=== PATIENT | female | born 1985 | race Caucasian/White ===

== ENCOUNTER 2016-11-20 11:46 | Inpatient (IN) | payer OTHER ==
[2016-11-20] VITALS (9 sets, daily range): BP systolic 94–128; BP diastolic 6–75; PULSE 66–131; RESP 17–20; TEMP 97.3–101.4; O2SAT 94–100
[~2016-11-20] VITALS: Ht 160 cm; Wt 78.5 kg
[2016-11-20] MEDS ORDERED: NACL 0.9% 1,000 ML IV ONE (11:54)
--- NOTE | 2016-11-20 11:55 | NUR ---
BROUGHT BACK TO BED #8 AND TRIAGED. REPORT GIVEN TO LEANA
[2016-11-20] MEDS ORDERED: ONDANSETRON HCL 4 MG/2 ML VIAL IVP ONE (12:00)
[2016-11-20] MEDS ORDERED: KETOROLAC TROMETHAMINE 30 MG VIAL IVP ONE (12:00)
[2016-11-20] MEDS ORDERED: PROCHLORPERAZINE EDISYLATE 10 MG/2 ML VIAL IVP ONE (12:15)
[2016-11-20 12:27] LABS: BASOPHILS # (AUTO) 0.1 K/uL (0.0-0.2); BASOPHILS % (AUTO) 0.5 % (0.0-2.0); EOSINOPHILS % (AUTO) 0.1 % (0.0-4.0); HEMATOCRIT 41.8 % (36-48); LYMPHOCYTES # (AUTO) 1.4 K/uL (1.0-5.5); LYMPHOCYTES % (AUTO) 10.4 % (20.5-51.5); MEAN CORPUSCULAR HEMOGLOBIN 29 pg (27-31); MEAN CORPUSCULAR HGB CONC 34 % (32-36); MEAN CORPUSCULAR VOLUME 87 fL (79.0-98.0); MONOCYTES # (AUTO) 0.2 K/uL (0.0-1.0); MONOCYTES % (AUTO) 1.2 % (1.7-9.3); NEUTROPHILS # (AUTO) 11.8 K/uL (1.8-7.7); NEUTROPHILS % (AUTO) 87.8 % (40.0-70.0); PLATELET COUNT (AUTO) 271 K/uL (130-430); RED BLOOD CELL COUNT(AUTO) 4.78 MIL/uL (4.2-6.2); RED CELL DISTRIBUTION WIDTH 13.4 % (9.0-15.0); WHITE BLOOD COUNT (AUTO) 13.5 K/uL (4.8-10.8)
[2016-11-20 12:32] LABS: AMYLASE 63 U/L (0-100); LIPASE 115 U/L (73-393)
--- NOTE | 2016-11-20 12:43 | NUR ---
ER at bedside examining patient.
--- NOTE | 2016-11-20 12:44 | NUR ---
# 20 gauge angiocath placed to rac. Use of asceptic technique. Opsite placed over site. Blood return noted. Blood for lab drawn from site. Flushed with 10 cc of normal saline. No evidence of infiltration noted. Patient tolerated well.
[2016-11-20 12:50] LABS: CALCIUM 8.7 mg/dL (8.4-11.0); CREATININE 0.89 mg/dL (0.55-1.30); POTASSIUM 3.9 mmol/L (3.5-5.1)
[2016-11-20 12:55] LABS: ALBUMIN 4.1 g/dL (3.4-4.8); TOTAL BILIRUBIN 0.4 mg/dL (0.0-1.0); TOTAL PROTEIN, SERUM 7.2 g/dL (6.4-8.3)
[2016-11-20 13:10] LABS: BILIRUBIN,URINE NEGATIVE (NEGATIVE); BLOOD, URINE NEGATIVE (NEGATIVE); CLARITY/URINE CLEAR (CLEAR); COLOR,URINE YELLOW (YELLOW); GLUCOSE,URINE NEGATIVE (NEGATIVE); KETONES,URINE NEGATIVE (NEGATIVE); LEUKOCYTE ESTERASE ,URINE NEGATIVE (NEGATIVE); NITRITE, URINE NEGATIVE (NEGATIVE); PH,URINE 6.5 (5.0-8.0); PROTEIN URINE NEGATIVE (NEGATIVE); UROBILINOGEN,URINE 0.2 (0.2-1.0)
[2016-11-20] MEDS ORDERED: CEFAZOLIN 2 GM IVPB PREMIX 50 ML IV ONE (14:00)
[2016-11-20] MEDS ORDERED: GLYCOPYRROLATE 0.2 MG/ML VIAL ONE (14:00)
[2016-11-20] MEDS ORDERED: LR 1,000 ML IV.SOLN IV ONE (14:00)
[2016-11-20] MEDS ORDERED: fentaNYL CITRATE 250 MCG/5 ML AMP ONE (14:00)
[2016-11-20] MEDS ORDERED: SEVOFLURANE 15 MIN GAS INH ONE (14:00)
[2016-11-20] MEDS ORDERED: ROCURONIUM BROMIDE 10 MG/ML (ZEMURON) ONE (14:00)
[2016-11-20] MEDS ORDERED: MIDAZOLAM HCL 5 MG/5 ML VIAL ONE (14:00)
[2016-11-20] MEDS ORDERED: BUPIVACAINE /EPINEPHRINE/PF 0.5% 30 ML VIAL INJ ONE (14:00)
[2016-11-20] MEDS ORDERED: PROPOFOL 200MG/ 20ML VIAL (DIPRIVAN) IV ONE (14:00)
[2016-11-20] MEDS ORDERED: NS IRRIG SOLN 1000 ML IR ONE (14:00)
[2016-11-20] MEDS ORDERED: PIPERACILLIN/TAZO 3.375 GM in NS 50 ML IV ONE (14:00)
[2016-11-20] MEDS ORDERED: D5LR 1,000 ML IV ONE (14:00)
[2016-11-20] MEDS ORDERED: NEOSTIGMINE METHYLSULFATE 1 MG/ML, 10 ML VIAL ONE (14:00)
[2016-11-20] MEDS ORDERED: ONDANSETRON HCL 4 MG/2 ML VIAL ONE (14:00)
[2016-11-20] MEDS ORDERED: PIPERACILLIN/TAZOBACTAM 3.375 GM/VIAL (ZOSYN) IV ONE (14:14)
--- NOTE | 2016-11-20 14:48 | NUR ---
Patient will be admitted to care of DR LANDRY. Admitted to [facility] unit. Will go to room 129A. Belongings list completed. Summary report printed. Report given to .
--- NOTE | 2016-11-20 14:50 | NUR ---
ADMISSION NOTE Received patient from ER via amanuel, received report from ROSY COONEY. Patient admitted with diagnosis of ACUTE APPENDICITIS. Patient oriented to hospital routine, call light, toileting and safety-patient verbalized understanding.
--- NOTE | 2016-11-20 16:22 | NUR ---
Consult Order received for a consult with Dr Lua for appendicitis. Spoke with Natividad at his office, will follow up as needed.
--- NOTE | 2016-11-20 16:46 | NUR ---
RN ROUNDS PATIENT RESTING IN BED, AWAKE, WATCHING TELEVISION, DENIES PAIN, NO OTHER NEEDS AT THIS TIME, BED IN LOWEST POSITION, TWO SIDE RAILS UP, FALL PRECAUTIONS IN PLACE, CALL LIGHT NEXT TO THE PATIENT'S HAND, PATIENT VISITOR AT TH BEDSIDE.
--- NOTE | 2016-11-20 16:56 | NUR ---
DR DELGADO SPOKE WITH DR BURT ON THE PHONE REGARDING PATIENT STATUS, WILL COME TO SEE THE PATIENT AFTER 5PM.
[2016-11-20] MEDS ORDERED: MORPHINE 4 MG/ML INJ. SYRINGE IVP PRN (18:15)
[2016-11-20] MEDS: KETOROLAC TROMETHAMINE 15 MG VIAL IVP SCH (18:15)
--- NOTE | 2016-11-20 18:15 | NUR ---
DR JUSTICE HERE TO SEE THE PATIENT AT THIS TIME.
--- NOTE | 2016-11-20 18:20 | NUR ---
PAIN MEDICATION EDUCATED THE PATIENT ON MEDICATION AND POTENTIAL SIDE EFFECTS AND TO CALL FOR ANY ASSISTANCE, PATIENT VERBALIZED UNDERSTANDING AND TOLERATED WELL, BED IN LOWEST POSITION, BED ALARM ON, TWO SIDE RAILS UP, FALL PRECAUTIONS IN PLACE, CALL LIGHT NEXT TO THE PATIENT'S HAND.
--- NOTE | 2016-11-20 18:52 | NUR ---
CLOSING NOTES PATIENT RESTING IN BED, STATES IMPROVED PAIN LEVEL, ALL NEEDS MET, BED IN LOWEST POSITION, TWO SIDE RAILS UP, BED ALARM ON, FALL PRECAUTIONS IN PLACE, CALL LIGHT NEXT TO THE PATIENT'S HAND, WILL ENDORSE REPORT TO NOC SHIFT NURSE.
--- NOTE | 2016-11-20 19:35 | NUR ---
INITIAL NOTE Patient resting on the bed. Respiration even and unlabored. No acute distress. Denied of pain at this time. Skin warm and dry to touch. IV intact to RAC, no redness, no swelling, no drainage. On D5 LR at 100ml/hr, infusing well. Family at bedside. Discussed the safety issue, use call light when need help, and plan of care. Patient waiting for surgery. Safety measure maintained. Call light within reached. Bed in low position, side rails up. Will continue to monitor.
--- NOTE | 2016-11-20 19:45 | NUR ---
OFF UNIT Patient off unit for surgery via bed at this time. No acute distress. Will be back after surgery.
[2016-11-20] MEDS ORDERED: LR 1,000 ML IV SCH (20:39)
[2016-11-20] MEDS ORDERED: METOCLOPRAMIDE HCL 10 MG/2 ML VIAL IVP PRN (20:45)
[2016-11-20] MEDS ORDERED: MORPHINE 2 MG/ML INJ. SYRINGE IVP PRN ×3 (20:45)
[2016-11-20] MEDS ORDERED: HYDROcodone/ACETAMIN 5-325 MG TAB (NORCO/ VICODIN) PO PRN (21:30)
[2016-11-20] MEDS: ACETAMINOPHEN 325 MG TABLET PO PRN (22:14)
--- NOTE | 2016-11-20 22:30 | NUR ---
BACK TO UNIT Patient back to unit via bed. VS: T=101.2, P=123, R=20, B/P=119/69, O2 sat =96 RA. Per ShaunaRN reported patient received Ancef 2gm IVPB and Tylenol 650mg PO for fever. Patient denied of pain at this time. No acute distress. Safety measure maintained. Call light within reached. Bed in low position, side rails up. Continue to monitor.
--- NOTE | 2016-11-20 22:52 | NUR ---
PAGED PAGED JAIRO GARCÍA AT [phone] SPOKE WITH ARMEN.
--- NOTE | 2016-11-20 23:05 | NUR ---
[facility] REGARD[facility] WITH FEVER AFTER SURGERY Informed Dr. Whelan patient with temp 101.2 and pulse 123 when back for surgery, per report patient received Ancef 2gm IVPB and Tylenol [address] PO[address]. Whelan stated "Give cooling measure and Zosyn." (Zosyn was ordered) No new order at this time.
--- NOTE | 2016-11-20 23:30 | NUR ---
RECHECKED TEMP Kldo=420.6 at this time. No acute distress. Cooling measure maintained. Ambulated to bathroom. Safety measure maintained. Call light within reached. continue to monitor.
[2016-11-20] MEDS: PIPERACILLIN/TAZO 3.375/DEX-IS 50 ML IV SCH (23:33)
[2016-11-20 23:49] LABS: HCG,QUAL RESULT NEGATIVE (NEGATIVE)
[2016-11-21] VITALS (9 sets, daily range): BP systolic 84–98; BP diastolic 47–63; PULSE 90–131; RESP 14–21; TEMP 97.7–101.2; O2SAT 96–100
--- NOTE | 2016-11-21 01:00 | NUR ---
ROUND Patient resting on the bed comfortable. No acute distress. Upow=601.6, cooling measure maintained. No acute distress. Safety measure maintained. Bed in low position, side rails up. Call light within reached. Continue to monitor.
--- NOTE | 2016-11-21 02:41 | NUR ---
ROUND Patient resting on the bed with eyes closed. No acute distress. Temp=99.8, cooling measure maintained. Call light within reached. Bed in low position, side rails up. Continue to monitor.
--- NOTE | 2016-11-21 04:20 | NUR ---
ROUND Patient resting on the bed comfortable. Respiration even and unlabored. No acute distress. Temp=99.8, Cooling measure maintained. Call light within reached. Bed in low position, side rails up. Continue to monitor.
[2016-11-21] MEDS: PIPERACILLIN/TAZO 3.375/DEX-IS 50 ML IV SCH ×4 (06:05→23:36)
[2016-11-21] MEDS: LR 1,000 ML IV SCH ×2 (06:05→15:23)
[2016-11-21] MEDS: ACETAMINOPHEN 325 MG TABLET PO PRN ×2 (06:28→17:54)
--- NOTE | 2016-11-21 06:28 | NUR ---
CLOSING NOTE Patient resting on the bed. Respiration even and unlabored. No acute distress. Tylenol 650mg given for fibm=551.4 at this time. Cooling measure maintained. IV intact to RAC, no redness, no swelling, no drainage. On LR at 125ml/hr, infusing well. All needs met. Hourly rounding during shift. Safety measure maintained. Call light within reached. Bed in low position, side rails up. Will endorse to morning shift nurse.
[2016-11-21] MEDS: KETOROLAC TROMETHAMINE 15 MG VIAL IVP SCH ×5 (07:09→23:36)
--- NOTE | 2016-11-21 07:28 | NUR ---
NOTE Rechecked temp=99.8 at this time. No acute distress. Safety measure maintained. Call light within reached. Endorse to morning shift nursePema at bedside.
--- NOTE | 2016-11-21 10:10 | NUR ---
ambulatory: pt walking in the hallway. no SOB. tolerated well.
[2016-11-21 11:41] LABS: BASOPHILS # (AUTO) 0.1 K/uL (0.0-0.2); BASOPHILS % (AUTO) 0.7 % (0.0-2.0); EOSINOPHILS % (AUTO) 0.1 % (0.0-4.0); HEMATOCRIT 35.7 % (36-48); HEMOGLOBIN 12.1 g/dL (12.0-16.0); LYMPHOCYTES # (AUTO) 0.7 K/uL (1.0-5.5); LYMPHOCYTES % (AUTO) 3.8 % (20.5-51.5); MEAN CORPUSCULAR HEMOGLOBIN 30 pg (27-31); MEAN CORPUSCULAR HGB CONC 34 % (32-36); MEAN CORPUSCULAR VOLUME 88 fL (79.0-98.0); MONOCYTES # (AUTO) 0.5 K/uL (0.0-1.0); MONOCYTES % (AUTO) 2.6 % (1.7-9.3); NEUTROPHILS # (AUTO) 16.6 K/uL (1.8-7.7); NEUTROPHILS % (AUTO) 92.8 % (40.0-70.0); PLATELET COUNT (AUTO) 162 K/uL (130-430); RED BLOOD CELL COUNT(AUTO) 4.08 MIL/uL (4.2-6.2); RED CELL DISTRIBUTION WIDTH 13.2 % (9.0-15.0); WHITE BLOOD COUNT (AUTO) 17.9 K/uL (4.8-10.8)
[2016-11-21 11:47] LABS: CALCIUM 7.7 mg/dL (8.4-11.0); CREATININE 1.23 mg/dL (0.55-1.30); POTASSIUM 3.8 mmol/L (3.5-5.1)
--- NOTE | 2016-11-21 15:25 | NUR ---
rounds: pt sleeping. no distress noted. changed I.V. fluids.
--- NOTE | 2016-11-21 18:03 | NUR ---
[place] rounds: Seen by Dr. Lua.
--- NOTE | 2016-11-21 18:05 | NUR ---
low BP/Fever: Dr. Lua aware of pt low BP/Fever with new order.
[2016-11-21] MEDS ORDERED: NS 500 ML IV ONE (18:30)
[2016-11-21] MEDS: ONDANSETRON HCL 4 MG/2 ML VIAL IVP PRN (19:09)
--- NOTE | 2016-11-21 19:15 | NUR ---
closing notes: pt complained of nausea. Ondansetron given. Stable. call light within reach. report given at bedside.
--- NOTE | 2016-11-21 20:00 | NUR ---
NOTES; SEEN PT IN BED, A/A/O X4. NO ACUTE DISTRESS NOTED. VITAL SIGNS STABLE, AFEBRILE. ABDOMEN SOFT NONDISTENDED WITH ACTIVE BOWEL SOUNDS. X3 ABDOMINAL INCISION WITH STERI STRIP DRESSING CLEAN,DRY, AND INTACT. IVF INFUSING WELL ON THE RT AC, GAUGE 20, PATENT. NO SIGNS OF INFECTION NOTED ON IV SITE. PT DEMONSTRATED I S UP TO 1500cc. ENCOURAGED PT ON THE USE OF I S X 10/HER WHILE AWAKE. PT VERBALIZED UNDERSTANDING. DENIES ANY PAIN AT THIS TIME. INSTRUCTED PT ON THE USE OF CALL LIGHT TO CALL FOR ANY NEED TO ASSIST. PT VERBALIZED UNDERSTANDING. BED LOCKED AND IN LOW POSITION. SIDE RAILS UP X3. CALL LIGHT WITHIN REACH. WILL CONTINUE TO MONITOR.
--- NOTE | 2016-11-21 21:00 | NUR ---
NOTES; PT AMBULATED IN [address], GAIT STEADY.
--- NOTE | 2016-11-21 22:45 | NUR ---
NOTES; RESTING QUIETLY. EASILY AROUSED. NO ACUTE DISTRESS NOTED. RESPIRATION EVEN AND UNLABORED. SAFETY MEASURES IN PROGRESS.
[2016-11-22 00:17] VITALS: BP 93/47; PULSE 84; RESP 16; TEMP 97.9; O2SAT 97
--- NOTE | 2016-11-22 00:30 | NUR ---
NOTES; RESTING QUIETLY. EASILY AROUSED. NO ACUTE DISTRESS NOTED. RESPIRATION EVEN AND UNLABORED. SAFETY MEASURES IN PROGRESS.
--- NOTE | 2016-11-22 02:30 | NUR ---
NOTES; RESTING QUIETLY. EASILY AROUSED. NO ACUTE DISTRESS NOTED. RESPIRATION EVEN AND UNLABORED. SAFETY MEASURES IN PROGRESS.
[2016-11-22] MEDS: LR 1,000 ML IV SCH (02:56)
[2016-11-22 04:17] VITALS: BP 95/55; PULSE 90; RESP 17; TEMP 97.4; O2SAT 98
--- NOTE | 2016-11-22 04:30 | NUR ---
NOTES; RESTING QUIETLY. EASILY AROUSED. NO ACUTE DISTRESS NOTED. RESPIRATION EVEN AND UNLABORED. SAFETY MEASURES IN PROGRESS.
[2016-11-22] MEDS: ACETAMINOPHEN 325 MG TABLET PO PRN ×2 (04:47→11:11)
[2016-11-22] MEDS: PIPERACILLIN/TAZO 3.375/DEX-IS 50 ML IV SCH ×2 (06:11→11:06)
[2016-11-22] MEDS: ONDANSETRON HCL 4 MG/2 ML VIAL IVP PRN (06:11)
[2016-11-22] MEDS: KETOROLAC TROMETHAMINE 15 MG VIAL IVP SCH ×2 (06:11→11:22)
[2016-11-22 06:25] LABS: CALCIUM 7.6 mg/dL (8.4-11.0); CREATININE 1.14 mg/dL (0.55-1.30); POTASSIUM 3.5 mmol/L (3.5-5.1)
[2016-11-22 06:45] LABS: BASOPHILS % (AUTO) 0.3 % (0.0-2.0); EOSINOPHILS # (AUTO) 0.1 K/uL (0.0-0.4); HEMATOCRIT 33.3 % (36-48); HEMOGLOBIN 11.4 g/dL (12.0-16.0); LYMPHOCYTES # (AUTO) 0.5 K/uL (1.0-5.5); LYMPHOCYTES % (AUTO) 4.4 % (20.5-51.5); MEAN CORPUSCULAR HEMOGLOBIN 30 pg (27-31); MEAN CORPUSCULAR HGB CONC 34 % (32-36); MEAN CORPUSCULAR VOLUME 87 fL (79.0-98.0); MONOCYTES # (AUTO) 0.5 K/uL (0.0-1.0); MONOCYTES % (AUTO) 4.6 % (1.7-9.3); NEUTROPHILS # (AUTO) 9.3 K/uL (1.8-7.7); NEUTROPHILS % (AUTO) 89.7 % (40.0-70.0); PLATELET COUNT (AUTO) 125 K/uL (130-430); RED BLOOD CELL COUNT(AUTO) 3.81 MIL/uL (4.2-6.2); RED CELL DISTRIBUTION WIDTH 13.9 % (9.0-15.0); WHITE BLOOD COUNT (AUTO) 10.4 K/uL (4.8-10.8)
--- NOTE | 2016-11-22 07:00 | NUR ---
NOTES; NO ACUTE DISTRESS NOTED. VITAL SIGNS STABLE, AFEBRILE. ABDOMEN SOFT NONDISTENDED WITH ACTIVE BOWEL SOUNDS. X3 ABDOMINAL INCISION WITH STERI STRIP DRESSING CLEAN,DRY, AND INTACT. IVF INFUSING WELL ON THE RT AC, GAUGE 20, PATENT. NO SIGNS OF INFECTION NOTED ON SURGICAL SITE AND IV SITE. PT DEMONSTRATED I S UP TO 1500cc. ENCOURAGED PT ON THE USE OF I S X 10/HER WHILE AWAKE. PT VERBALIZED UNDERSTANDING. DENIES ANY PAIN AT THIS TIME. INSTRUCTED PT ON THE USE OF CALL LIGHT TO CALL FOR ANY NEED TO ASSIST. PT VERBALIZED UNDERSTANDING. ALL NEEDS ATTENDED. BED LOCKED AND IN LOW POSITION. SIDE RAILS UP X3. CALL LIGHT WITHIN REACH. WILL CONTINUE TO MONITOR.
--- NOTE | 2016-11-22 07:30 | NUR ---
Initial notes: pt on bed awake, alert and oriented. i.v. access patent. 3 small abdominal incision steri strip intact and no bleeding. discussed plan of care. call light within reach. report received at bedside.
[2016-11-22 08:00] VITALS: BP 104/61; PULSE 81; RESP 16; TEMP 98.4; O2SAT 96
--- NOTE | 2016-11-22 08:44 | NUR ---
rounds: pt sitting on chair and having breakfast. denies pain.
--- NOTE | 2016-11-22 09:06 | NUR ---
Nutrition Update Oliverio Scale 18 noted. Pt admitted for acute appendicitis. Diet: soft (low fiber/bland) BMI: 30.6 kg/m2 RD to follow per nutrition care standards.
--- NOTE | 2016-11-22 10:29 | NUR ---
PAGED DR BURT FOR DISCHARGE ORDERS. SPOKE WITH PATO
--- NOTE | 2016-11-22 11:35 | NUR ---
rounds: pt on bed resting. no distress noted.
[2016-11-22] MEDS ORDERED: AMOX-426 PO (11:50)
[2016-11-22 12:56] VITALS: BP 101/72; PULSE 75; RESP 17; TEMP 97.9; O2SAT 99
--- NOTE | 2016-11-22 13:45 | NUR ---
[place] rounds: Dr. Lua came to see the pt with discharge order.
[2016-11-22 14:29] VITALS: BP 101/72; PULSE 75; RESP 17; TEMP 97.9; O2SAT 99
--- NOTE | 2016-11-22 14:54 | NUR ---
D/C Patient Patient given medication reconciliation form and D/C instructions. Exit Care provided. Patient verbalized understanding. MD discussed with patient the results and treatment provided. Ambulatory with steady gait for discharge to home. Patient in stable condition, ID band removed. IV catheter removed, intact and dressing applied, no active bleeding. Rx of oral antibiotic given. Patient educated on pain management. All belongings sent with patient.
== END 2016-11-22 14:55 | disposition home or self-care (01) | DRG 853 ==
LOC: SED 11:46 → SMU 13:57
PROVIDERS: ADMIT Internal Medicine; ATTEND Internal Medicine
PROC: 0DTJ4ZZ Resection of Appendix, Percutaneous Endoscopic Approach (ICD-10-PCS; principal; 2016-11-20 18:15)
DX: A41.9 Sepsis, unspecified organism (principal); K35.3 Acute appendicitis with localized peritonitis; E87.1 Hypo-osmolality and hyponatremia; Z98.51 Tubal ligation status
CPT/HCPCS: 36415; 80048; 80053; 81003; 82150-TC; 83605; 83690-TC; 84703; 85025; 87040-TC; 87081; 88304; 94010; 96361; 96365; 96375; 99285; C1727; J0690; J0780; J1885; J2250; J2270; J2405; J2543; J2704; J2710; J3010; J3490; J7030; J7040; J7060; J7120

== ENCOUNTER 2017-10-09 08:18 | Outpatient (CLI) | payer OTHER ==
[~2017-10-09 08:18] MED LIST: AMOX-426 PO
== END 2017-10-09 20:10 | disposition home or self-care (01) ==
LOC: SCA 08:18
PROVIDERS: ATTEND Internal Medicine
DX: R07.9 Chest pain, unspecified (principal); V89.2XXA Person injured in unspecified motor-vehicle accident, traffic, initial encounter; Y93.89 Activity, other specified; Y92.89 Other specified places as the place of occurrence of the external cause; Y99.8 Other external cause status
CPT/HCPCS: 71046-TC; 93005; 93306